=== PATIENT | female | born 1955 | race Caucasian/White ===

== ENCOUNTER 2017-03-21 12:03 | Day surgery (SDC) | payer OTHER ==
[2017-03-21 13:29] VITALS: BMI 25.7
[2017-03-21 14:35] VITALS: TEMP 97.9
[2017-03-21 15:36] VITALS: BP 105/51; PULSE 57
== END 2017-03-21 15:35 | disposition home or self-care (01) ==
LOC: JASU-ENDO 12:03
PROVIDERS: ATTEND Internal Medicine Gastroenterology
PROC: 0DJD8ZZ Inspection of Lower Intestinal Tract, Via Natural or Artificial Opening Endoscopic (ICD-10-PCS; principal; 2017-03-21 13:00)
DX: K57.90 Diverticulosis of intestine, part unspecified, without perforation or abscess without bleeding (principal); K64.8 Other hemorrhoids; K63.89 Other specified diseases of intestine

== ENCOUNTER 2018-07-16 04:57 | Day surgery (SDC) | payer BC, OTHER ==
[2018-07-15 17:45] VITALS: BMI 28.9
[2018-07-16] MEDS ORDERED: PROPOFOL 20 ML ONE ×6 (06:55)
[2018-07-16] MEDS ORDERED: SUCCINYLCHOLINE CHLORIDE 200 MG/10 ML VIAL ONE (06:55)
[2018-07-16] MEDS ORDERED: ePHEDrine SULFATE 50 MG/1 ML AMPULE ONE (06:55)
[2018-07-16] MEDS ORDERED: MIDAZOLAM HCL 2 MG/2 ML SINGLE DOSE VIAL ONE (06:56)
--- NOTE | 2018-07-16 08:18 | HP ---
Satellite [facility] - Chief Complaint Chief Complaint: right hand mass History of Present Illness: right hand mass History Source: Patient Limitations to Obtaining History: No Limitations - Past Medical History Allergies/Adverse Reactions: Allergies Allergy/AdvReac Type Severity Reaction Status Date / Time erythromycin lactobionate Allergy Verified 07/16/18 06:32 [From Erythrocin] morphine Allergy Verified 07/16/18 06:32 Cardiovascular: Yes: HTN. No: Hyperlipdemia - Current Medications Current Medications: Home Medications Medication Instructions Recorded Atenolol [Tenormin -] 25 mg PO BID 03/19/17 Diazepam 10 mg PO PRN 03/19/17 Atorvastatin Ca [Lipitor] 10 mg PO HS 07/15/18 Satellite Physical Exam - Physical Examination Vital Signs: Vital Signs Period Temp Pulse Resp BP Sys/Rios Pulse Ox Last 24 Hr 97.6 F 63 18 145/68 98 General Appearance: Well Nourished ENT: Clear Lung: Clear to auscultation Heart: Regular rate & rhythm Breasts: Soft Abdomen: Soft Extremities: No edema Satellite Impression/Plan - Impression/Plan Impression: right hand mass Operative Procedure: excision mass right hand Date to be Performed: 07/16/18
[2018-07-16] MEDS ORDERED: BUPIVACAINE HCL/PF (5 MG/ML) 30 ML VIAL IJ ONE (08:40)
[2018-07-16] MEDS ORDERED: LIDOCAINE HCL 1%, 10 MG/ML (20ML VIAL) NR ONE (08:40)
[2018-07-16] MEDS ORDERED: ceFAZolin SODIUM 1 GM VIAL IVPB ONE (08:43)
[2018-07-16] MEDS ORDERED: ONDANSETRON 4 MG/2 ML VIAL IVPUSH PRN (08:55)
[2018-07-16] MEDS ORDERED: oxyCODONE HCL 5 MG TABLET PO PRN ×2 (08:55)
[2018-07-16] MEDS ORDERED: LACTATED RINGERS SOLUTION 1,000 ML IV SCH (09:00)
--- NOTE | 2018-07-16 09:09 | OP ---
Operative Note - Note: Operative Date: 07/16/18 Pre-Operative Diagnosis: right hand mass Operation: excision right hand mass Post-Operative Diagnosis: Same as Pre-op Surgeon: Daniel Crystal Anesthesiologist/FARMER CASH GRAIN: Juan A Schroeder Anesthesia: Local, MAC Specimens Removed: mass right hand, ganglion cyst Estimated Blood Loss (mls): 0 Drains, Volume Out (mls): 0 Blood Volume Replaced (mls): 0 Fluid Volume Replaced (mls): 500 Operative Report Dictated: Yes
[2018-07-16 09:33] VITALS: TEMP 97.4
[2018-07-16] MEDS ORDERED: PROMETHAZINE HCL 25 MG/1 ML VIAL IVPB ONE (10:17)
[2018-07-16] MEDS ORDERED: PROMETHAZINE HCL 25 MG/1 ML VIAL IVPUSH ONE (10:17)
--- NOTE | 2018-07-16 10:36 | OP ---
DATE OF OPERATION: 07/16/2018 PREOPERATIVE DIAGNOSIS: Right hand mass. POSTOPERATIVE DIAGNOSIS: Right hand mass. PROCEDURE: Excision mass, right hand, ganglion cyst. SURGEON: Apoorva Tracy MD ASSISTANTS: None. OSTEOLOGIST: WIL Hull ANESTHESIA: MAC anesthesia with local injection of 10 mL of 0.5% Marcaine 1% lidocaine mixed. DRAINS: None. COMPLICATIONS: None. SPECIMEND: Mass, right hand, ganglion cyst. BLOOD LOSS: None. BLOOD GIVEN: None. FLUID REPLACEMENT: PlasmaLyte, 500 mL. INDICATIONS: This patient is a 62-year-old female with a preoperative diagnosis of a painful mass on the volar aspect of her right hand/middle finge. After understanding the potential risks, complications, alternatives, and benefits of surgery versus nonsurgical treatment, the patient elected to undergo this procedure. DESCRIPTION OF PROCEDURE: The patient was brought to the operating room, peripheral IV was placed. IV sedation given. One gram of IV Ancef was given, MAC anesthesia was induced. Right upper extremity was prepped and draped in sterile fashion. An oblique incision was marked out with a marking pen, and 10 mL of 0.5% Marcaine and 1% lidocaine mix was injected around the surgical incision and as a metacarpal head block. The right upper extremity was then elevated and exsanguinated with an Esmarch bandage. Tourniquet was inflated to 250 mmHg. The entire case was done under 3.8 loupe magnification. Next, a No. 15 scalpel blade was utilized to cut into the skin and subcutaneous tissue. Hemostasis was achieved with the bipolar cautery. Dissection was done with a curved small Littler scissors. Great care was taken to preserve the crossing neurovascular structures on both the radial and ulnar sides of this mass. Circumferential dissection revealed a relatively large mass for this part of the head. It was about 8 mm, spherical, and at one point popped, and classic ganglion cyst-like fluid was expressed. It was volar to the A1 carol sheath area, but did not seem to interfere with the tendon function whatsoever. The patient did not have a lot of pain deep. Therefore, I did not do a trigger-finger release. Circumferential dissection was done, and it was cut off the volar aspect of the A1 carol sheath with a fresh No. 15 scalpel blade. It was passed off the field as specimen. The area was copiously irrigated and washed out. I did not see or feel any other abnormal tissue. Therefore, it was irrigated and washed out again, and closure done with 4-0 undyed Vicryl in the deep dermal layer, and final skin reapproximation was done with a single interrupted and horizontal mattress 4-0 nylon suture. The area was then washed and dried, covered with Xeroform gauze, 4x4 gauze, fluffs between the fingers, Webril, and Coban. The tourniquet was taken down after a total tourniquet time of about 18 minutes. There were no complications during the case. The patient tolerated the procedure quite well and was brought to the ambulatory recovery room in stable condition. APOORVA TRACY M.D. [id number]
[2018-07-16 12:11] VITALS: BP 138/73; PULSE 55
--- NOTE | 2018-07-17 19:17 | PATH ---
Surgical Pathology Report Patient Name: MAREK MUÑOZ [facility]. Rec. #: [id number] /Age/Gender: 1955 (Age: 62) / F Account: [id number] Location: [facility] SURGICAL Taken: 07/16/2018 Received: 07/16/2018 Reported: 07/17/2018 Physicians: Daniel Crystal M.D. Specimen(s) Received RIGHT HAND MASS Clinical History Cyst mass Final Diagnosis HAND, MASS, RIGHT, EXCISION: CONSISTENT WITH GANGLION CYST. Electronically Signed Angie Rodriguez M.D. Gross Description Received in formalin labeled "mass right hand," is a 1.0 x 0.7 x 0.2 cm martinez-yellow cystic structure. The specimen is submitted in toto in one cassette. 07/16/201807/16/2018
== END 2018-07-16 12:14 | disposition home or self-care (01) ==
LOC: JASU-SURG 04:57
PROVIDERS: ATTEND Orthopaedic Surgery
PROC: 0LB70ZZ Excision of Right Hand Tendon, Open Approach (ICD-10-PCS; principal; 2018-07-16 08:00)
DX: M67.441 Ganglion, right hand (principal)
CPT/HCPCS: 88304-TC

== ENCOUNTER 2018-10-28 05:14 | Day surgery (SDC) | payer OTHER, BC ==
[2018-10-23 12:16] VITALS: BMI 29.4
[2018-10-28] MEDS ORDERED: LIDOCAINE 1%-EPI 1:100,000 30 ML MDV IJ ONE (09:58)
[2018-10-28] MEDS ORDERED: MICROFIBRILLAR COLLAGEN 1 GM EACH ONE (09:58)
[2018-10-28] MEDS ORDERED: MIDAZOLAM HCL 2 MG/2 ML SINGLE DOSE VIAL ONE ×2 (10:49)
[2018-10-28] MEDS ORDERED: ceFAZolin SODIUM 1 GM VIAL IVPB ONE (11:13)
[2018-10-28] MEDS ORDERED: PROPOFOL 20 ML ONE ×2 (11:14)
[2018-10-28] MEDS ORDERED: LIDOCAINE 1%/EPI 1:100000 (20 ML MULTI DOSE VIAL) IJ ONE ×2 (11:37)
[2018-10-28] MEDS ORDERED: MICROFIBRILLAR COLLAGEN 1 GM EACH NR ONE (11:56)
[2018-10-28] MEDS ORDERED: ONDANSETRON 4 MG/2 ML VIAL IVPUSH PRN (12:24)
[2018-10-28] MEDS ORDERED: LACTATED RINGERS SOLUTION 1,000 ML IV SCH (12:30)
--- NOTE | 2018-10-28 13:18 | OP ---
Operative Note - Note: Operative Date: 10/28/18 Pre-Operative Diagnosis: Thyroid mass Operation: Right hemithyroidectomy and Right parathyroid transplantation Post-Operative Diagnosis: Same as Pre-op Surgeon: Sunil Diaz [employer] Consultant: Rogerio Gardiner Anesthesiologist/PARAMEDIC INSTRUCTOR: Leonarda Eduardo MD Anesthesia: General Estimated Blood Loss (mls): 20 Fluid Volume Replaced (mls): 1,000 Operative Report Dictated: Yes
--- NOTE | 2018-10-28 13:19 | SURG ---
Surgery Deputy Treasurer Note Deputy Treasurer: Rogerio Gardiner PA-C Date of Service: 10/28/18 Diagnosis: Thyroid mass Procedure: Right hemithyroidectomy and Right parathyroid transplantation I was present for the entirety of the operative procedure. For further detail, please refer to operative report. Visit type - Case Type Case Type: Scheduled - Emergency Emergency Visit: No - New patient This patient is new to me today: Yes Date on this admission: 10/28/18
[2018-10-28] MEDS ORDERED: ONDANSETRON 4 MG/2 ML VIAL ONE (13:36)
--- NOTE | 2018-10-28 14:07 | OP ---
DATE OF OPERATION: 10/28/2018 SURGICAL ATTENDING: Rah Bro MD PEPPER CUTTER: Rogerio Gardiner PA-C PREOPERATIVE DIAGNOSIS: Right thyroid goiter. POSTOPERATIVE DIAGNOSIS: Right thyroid goiter ANESTHESIA: General endotracheal. PROCEDURE: 1. Right hemithyroidectomy. 2. Parathyroid autotransplantation. 3. Neck ultrasound. DESCRIPTION OF PROCEDURE: The patient was taken into the operating room, placed in a supine position, endotracheally intubated. Eye protection and shoulder roll were placed. Neck ultrasound was performed showing a large right thyroid goiter. The left thyroid lobe was normal except for a very small sub-centimeter superficial nodule with no suspicious characteristics. No adenopathy was seen. The neck was then prepped and draped in the usual sterile fashion. Local anesthesia was administered, and a 4.5-cm horizontal incision was made in a anterior mid neck and carried down through subcutaneous tissues and platysma. Subplatysmal flaps were raised superiorly and inferiorly, and flap hooks were placed for exposure. The median raphe was incised, and the right-sided strap muscles were elevated off the thyroid gland. The recurrent laryngeal nerve, superior laryngeal nerve, and inferior parathyroid glands were identified and preserved. The superior, posterior, and inferior attachments to the thyroid gland were transected. The thyroid was then taken off of the trachea. The isthmus was transected, and in this way, the right thyroid lobe was removed. On inspection, a right superior parathyroid gland was identified, normal in appearance, was cut into 2 pieces, minced, and placed into the right sternocleidomastoid muscle marked with Prolene sutures. Hemostasis was achieved and checked with Valsalva maneuver. Avitene was placed. The wound was then closed in 3 layers. Sterile dressings and Dermabond were placed. The patient was then awakened, extubated, and taken to recovery in stable condition. Dr. Bro, the attending surgeon, was present throughout the entire procedure. RAH BRO M.D. BURTON/[id number]
[2018-10-28 17:50] VITALS: BP 144/64; PULSE 72; TEMP 98.1
--- NOTE | 2018-10-30 16:59 | PATH ---
Surgical Pathology Report Patient Name: MAREK MUÑOZ Med. Rec. #: [id number] /Age/Gender: 1955 (Age: 62) / F Account: [id number] Location: [facility] SURGICAL Taken: 10/28/2018 Received: 10/29/2018 Reported: 10/30/2018 Physicians: Sunil Diaz M.D. Specimen(s) Received RIGHT THYROID LOBE Clinical History Thyroid mass Final Diagnosis THYROID, RIGHT LOBE, HEMITHYROIDECTOMY: BENIGN THYROID WITH MULTINODULAR HYPERPLASIA, POST HEMORRHAGIC CHANGES, DYSTROPHIC CALCIFICATIONS, AND FEATURES CONSISTENT WITH CHRONIC LYMPHOCYTIC THYROIDITIS. Comment: Suggest clinical, radiologic, and serologic correlation. Electronically Signed Angie Rodriguez M.D. Gross Description Received in formalin labeled "right thyroid lobe," is a 61 g, 8.5 x 4.3 x 3.6 cm thyroid lobe. The outer surface is martinez-brown with a focal defect. Sectioning reveals martinez-brown, nodular colloid parenchyma. No discrete mass is identified. No normal thyroid parenchyma is identified. Senior Digital Designer sections are sequentially submitted in 11 cassettes. /10/29/2018 saudi/10/29/2018
== END 2018-10-28 17:30 | disposition home or self-care (01) ==
LOC: JASU-SURG 05:14
PROVIDERS: ATTEND Surgery
PROC: 0GSR0ZZ Reposition Parathyroid Gland, Open Approach (ICD-10-PCS; 2018-10-28)
PROC: 0GTH0ZZ Resection of Right Thyroid Gland Lobe, Open Approach (ICD-10-PCS; principal; 2018-10-28 11:00)
DX: E04.2 Nontoxic multinodular goiter (principal); I10 Essential (primary) hypertension; K21.9 Gastro-esophageal reflux disease without esophagitis; E66.9 Obesity, unspecified
CPT/HCPCS: 88307-TC; 94760